=== PATIENT | male | born 1965 | race Caucasian/White ===

== ENCOUNTER → 2024-03-19 | Outpatient (CLI) | payer OTHER ==
[~2024-03-19] MED LIST: ATOR10 PO; HYDCHL25 PO; METF500 PO; OXYACE5T PO; RXCLIN PO; SULTRIDS PO
== END | disposition home or self-care (01) ==
LOC: LAB SHORT 10:38 → LAB 10:38
DX: N39.41 Urge incontinence (principal)
CPT/HCPCS: 87086